=== PATIENT | male | born 1995 | race Caucasian/White ===

== ENCOUNTER 2017-11-28 22:37 | Emergency (ER) | payer MEDICAID ==
[2017-11-28 23:58] VITALS: BP 113/78
== END 2017-11-28 23:58 | disposition home or self-care (01) ==
LOC: ED 22:37
DX: S83.91XA Sprain of unspecified site of right knee, initial encounter (principal); X58.XXXA Exposure to other specified factors, initial encounter; Y93.89 Activity, other specified; Y92.89 Other specified places as the place of occurrence of the external cause; Y99.8 Other external cause status
CPT/HCPCS: J1885

== ENCOUNTER 2018-10-30 16:33 | Emergency (ER) | payer OTHER, MEDICAID ==
[~2018-10-30] VITALS: Ht 177.8 cm; Wt 69.9 kg
[2018-10-30 16:59] VITALS: BP 109/67; Ht 177.8 cm; Wt 69.9 kg
== END 2018-10-30 19:01 | disposition home or self-care (01) ==
LOC: ED 16:33
DX: M54.5 Low back pain (principal); X50.0XXA Overexertion from strenuous movement or load, initial encounter; Y93.89 Activity, other specified; Y92.89 Other specified places as the place of occurrence of the external cause; Y99.8 Other external cause status
CPT/HCPCS: J1885